=== PATIENT | female | born 1965 ===

== ENCOUNTER → 2020-09-15 11:29 | Outpatient (CLI) | payer OTHER | END | disposition home or self-care (01) | LOC: LAB 11:29 | PROVIDERS: ATTEND Urology | DX: N30.00 Acute cystitis without hematuria (principal) ==

== ENCOUNTER 2020-09-21 09:02 | Outpatient (CLI) | payer OTHER | END 2020-09-21 09:12 | disposition home or self-care (01) | LOC: RAD 09:02 | PROVIDERS: ATTEND Urology | DX: N20.0 Calculus of kidney (principal) ==

== ENCOUNTER 2022-10-08 06:35 | Inpatient (IN) | payer OTHER ==
[~2022-10-08] VITALS: Ht 170.2 cm; Wt 72.6 kg
[2022-10-08] MEDS ORDERED: SYNTHROID100 MCG (06:53)
[2022-10-08] MEDS ORDERED: PREVACID30 MG (06:54)
[2022-10-08] MEDS ORDERED: DICY20TA (06:54)
[2022-10-08] MEDS ORDERED: PEPCID AC20 MG (06:54)
== END 2022-10-10 13:51 | disposition home or self-care (01) | DRG 446 ==
LOC: ER 06:35 → MEDI 17:39
PROVIDERS: ADMIT Internal Medicine; ATTEND Internal Medicine
PROC: BT4JZZZ Ultrasonography of Kidneys and Bladder (ICD-10-PCS; principal; 2022-10-08)
DX: K80.00 Calculus of gallbladder with acute cholecystitis without obstruction (principal); K29.00 Acute gastritis without bleeding